=== PATIENT | female | born 1975 | race African-American/Black ===

== ENCOUNTER 2022-03-12 10:28 | Emergency (ER) | payer OTHER ==
[~2022-03-12] VITALS: Ht 165.1 cm; Wt 120.7 kg
[2022-03-12] MEDS ORDERED: KETOROLAC TROMETHAMINE 30 MG/ML VIAL IV STA (10:43)
[2022-03-12] MEDS ORDERED: ONDANSETRON HCL INJ 2MG/ML 2ML 2 MG/ML VIAL IV STA (10:43)
[2022-03-12] MEDS ORDERED: SODIUM CHLORIDE 0.9% 500ML 500 ML IV ONE (10:45)
[2022-03-12] MEDS ORDERED: Morphine 4mg INJECTION 4 MG/ML INJ IV ONE (10:45)
[2022-03-12] MEDS ORDERED: CLINDAMYCIN PHOS 900MG/ 50ML 50 ML IV ONE ×2 (11:00→11:06)
[2022-03-12] MEDS ORDERED: PIPERACILLIN/TAZOBACTAM 4.5 GM in SODIUM CHLORIDE 0.9% 100 ML IV ONE (11:00)
[2022-03-12] MEDS ORDERED: PIPERACILLIN/TAZOBACTAM 4.5GM 4.5 GM VIAL ONE (11:03)
[2022-03-12] MEDS ORDERED: SODIUM CHLORIDE 0.9% 250ML 250 ML ONE (11:05)
[2022-03-12] MEDS ORDERED: ULTRAM 50MG50 MG PO (12:09)
== END 2022-03-12 12:25 | disposition home or self-care (01) ==
LOC: ER 10:35
DX: K02.9 Dental caries, unspecified (principal); K08.409 Partial loss of teeth, unspecified cause, unspecified class
CPT/HCPCS: 99283; J1885; J2270; J2405; J2543; J7040; J7050